=== PATIENT | male | born 1950 | race Caucasian/White ===

== ENCOUNTER → 2018-04-03 | Outpatient (CLI) | payer OTHER ==
[~2018-04-03] MED LIST: ALLOPURINOL300 MG PO; CLONAZEPAM0.5 M1; GABAPENTIN400 MG PO; IOPAMIDOL 370 MG/ML 200 ML INFUS..BTL INJ ONE; SIMVASTATIN20 MG PO; SODIUM CHLORIDE 0.9% 50ML 50 ML ONE; ZOLPIDEM TARTRAT5 MG PO
[2018-04-03 08:03] LABS: BLOOD UREA NITROGEN 14 mg/dL (7-26); BUN/CREATININE RATIO 17 (6-25); CREATININE, SERUM 0.82 mg/dL (0.72-1.25); EST GLOMERULAR FILTRATION RATE > 60 ML/MIN (60-)
--- NOTE | 2018-04-03 09:07 | Diagnostic Imaging Report ---
PROCEDURE: CT scan of the chest WITH intravenous contrast, using standard protocol. TECHNIQUE: The chest was scanned utilizing a multidetector helical scanner from the lung apex through the level of the adrenal glands after the IV administration of 100 cc of Isovue 370. Coronal and sagittal multiplanar reformations were obtained. COMPARISON: Chest radiograph 03/17/18. INDICATIONS: LUNG MASS FINDINGS: Lungs and Airways: There is an azygous lobe. There is a 1.8 x 0.8 x 1 cm (TV x AP x SI) nodular opacity abutting the azygous fissure in the right upper lobe (series 3, image 24). There is a 3 mm right middle lobe nodule on series 3, image 59. The central airways are patent. Pleura: The pleural spaces are clear. Biapical pleural parenchymal scarring. Heart and mediastinum: The thyroid gland is normal. No significant mediastinal, hilar or axillary lymphadenopathy is seen. The heart and pericardium are within normal limits. Soft tissues: Normal. Abdomen: Limited contrast-enhanced views of the upper abdomen show no abnormality within the visualized liver, spleen, pancreas, or kidneys. The adrenal glands are normal. Bones: No acute bony findings. Lower thoracic spinal stimulator is present. IMPRESSION: Indeterminate 1.8 cm nodular opacity in the right upper lobe abutting the azygous fissure. While pleural parenchymal scarring can have a similar appearance, a pulmonary nodule is considered more likely. Per 2017 Fleischner Society recommendations, a PET-CT, follow-up chest CT in 3 months, or biopsy is suggested for further evaluation. Dictated by: PARAMJIT CORDERO M.D. on 04/03/2018 at 9:15 Electronically approved by: PARAMJIT CORDERO M.D. on 04/03/2018 at 9:15
== END ==
LOC: CT 07:05
PROVIDERS: ATTEND Urology
DX: D38.1 Neoplasm of uncertain behavior of trachea, bronchus and lung (principal)
CPT/HCPCS: 36415; 71260; 82565; 84520; Q9967

== ENCOUNTER → 2018-04-04 | Day surgery (SDC) | payer OTHER ==
[~2018-04-04] MED LIST changes: +CLINDAMYCIN 300MG 50 ML IV ONE; +FENTANYL CITRATE/PF 100MCG/2 ML INJ ONE; +GENTAMICIN 120MG/NS 100ML 100 ML ONE; -IOPAMIDOL 370 MG/ML 200 ML INFUS..BTL INJ ONE; +MIDAZOLAM HCL 2 MG/2 ML VIAL ONE; +PROPOFOL IV EMULSION 10 MG/ML 20 ML VIAL ONE; -SODIUM CHLORIDE 0.9% 50ML 50 ML ONE
[2018-04-04 10:20] VITALS: BP 131/91
--- NOTE | 2018-04-07 11:56 | Operative Report ---
DATE OF PROCEDURE: April 04, 2018 PREOPERATIVE DIAGNOSIS: Elevated prostatic specific antigen of 11. POSTOPERATIVE DIAGNOSIS: Elevated prostatic specific antigen of 11. PROCEDURES 1. Prostate ultrasound. 2. Ultrasound-guided needle biopsy. 3. Biopsy of prostate. ANESTHESIA: General. ESTIMATED BLOOD LOSS: Minimal. COMPLICATIONS: None. INDICATIONS: Mr. De La Cruz is a 68-year-old male with an increasing PSA. He and I had a long discussion of the alternatives, risks and benefits, including doing nothing, prostate biopsy. He voiced the options, alternatives, risks, and benefits. He had a urinalysis negative for infection and had prophylactic antibiotics. PROCEDURE IN DETAIL: After informed consent was obtained, the patient was taken to the operative suite and placed supine on the operative table. Underwent anesthesia by the service. He was then placed in the left lateral decubitus position. 1. PROSTATE ULTRASOUND: Utilizing a plethora of lubrication, the transrectal ultrasound probe was inserted anally. A prostate ultrasound was performed. It revealed normal appearing seminal vesicles. The volume of the prostate was calculated at 23.98 mL. No hypoechoic lesions. No calcifications. 2. ULTRASOUND GUIDANCE: meteorological technician utilized the ultrasound machine. Ultrasound guidance was performed. 3. NEEDLE BIOPSY OF PROSTATE: Typical pattern. Prostate biopsies were performed with minimal bleeding. The patient tolerated the procedure well. Was transported to the recovery room in excellent condition. No untoward effects noted. Job#: [id number] SIMON
== END | disposition home or self-care (01) ==
LOC: OR 07:04
PROVIDERS: ATTEND Urology
DX: C61 Malignant neoplasm of prostate (principal); G47.33 Obstructive sleep apnea (adult) (pediatric); Z88.5 Allergy status to narcotic agent; F41.9 Anxiety disorder, unspecified
CPT/HCPCS: 55700; 76872; 76942; 88305; J1580; J2250

== ENCOUNTER → 2019-01-15 | Outpatient (CLI) | payer OTHER ==
[~2019-01-15] MED LIST changes: -CLINDAMYCIN 300MG 50 ML IV ONE; -FENTANYL CITRATE/PF 100MCG/2 ML INJ ONE; -GENTAMICIN 120MG/NS 100ML 100 ML ONE; +IOPAMIDOL 370 MG/ML 200 ML INFUS..BTL INJ ONE; -MIDAZOLAM HCL 2 MG/2 ML VIAL ONE; -PROPOFOL IV EMULSION 10 MG/ML 20 ML VIAL ONE; +SODIUM CHLORIDE 0.9% 50ML 50 ML ONE
[2019-01-15 11:51] LABS: BLOOD UREA NITROGEN 21 mg/dL (7-26); BUN/CREATININE RATIO 21 (6-25); CREATININE, SERUM 1.01 mg/dL (0.72-1.25); EST GLOMERULAR FILTRATION RATE > 60 ML/MIN (60-)
--- NOTE | 2019-01-15 12:53 | Diagnostic Imaging Report ---
PROCEDURE: CT scan of the chest WITH intravenous contrast, using standard protocol. TECHNIQUE: The chest was scanned utilizing a multidetector helical scanner from the lung apex through the level of the adrenal glands after the IV administration of 100 cc of Isovue 370. Coronal and sagittal multiplanar reformations were obtained. COMPARISON: 04/03/2018 INDICATIONS: RUL NODLE FINDINGS: Lines/tubes: None. Lungs and Airways: When accounting for differences in technique, no appreciable interval change in the size or appearance of the previously described nodular opacity along the azygous fissure in the right upper lobe (series 3 image 28). The lesion measures 1.6 cm oblique transverse by 0.8 cm oblique AP by 0.8 cm craniocaudal (previously 1.8 x 0.8 x 1 cm). Similarly, the 3 mm right middle lobe nodule described on the comparison examination is also unchanged. Accessory azygos fissure again noted. Triangular juxtapleural opacity laterally within the right lower lobe is unchanged as well. No new or additional suspicious pulmonary nodules. No consolidation, bronchiectasis, or gross fibrotic change Pleura: The pleural spaces are clear. Heart and mediastinum: Visualized portions of the thyroid gland appear normal. No axillary, hilar, or mediastinal lymphadenopathy. Normal heart size without pericardial effusion. Tortuous thoracic aorta without ectasia or aneurysmal dilatation. Great vessel origins are normal in caliber and configuration. Soft tissues: No focal soft tissue abnormalities. Spinal stimulator device terminates in the dorsal aspect of the spinal canal at T9-T10, unchanged. Abdomen: Visualized portions of the liver, gallbladder, spleen, pancreas, and adrenal glands are unremarkable. 1.4 cm exophytic lesion projecting anteriorly from the partially visualized left kidney has average internal attenuation less than 10 Hounsfield units, compatible with a simple cyst. Bones: No acute osseous abnormality. Multilevel degenerative disc changes. IMPRESSION: When accounting for differences in technique, no significant interval change in the appearance of the irregularly marginated nodular opacity in the right lung apex, likely post infectious or inflammatory scar given stability to March 2018. An additional one year followup chest CT may be obtained to document 2 years of stability. Dictated by: Yousuf Carranza M.D. on 01/15/2019 at 12:58 Electronically approved by: Yousuf Carranza M.D. on 01/15/2019 at 12:58
== END ==
LOC: CT 10:54
PROVIDERS: ATTEND Internal Medicine Critical Care Medicine
DX: R91.8 Other nonspecific abnormal finding of lung field (principal)
CPT/HCPCS: 36415; 71260; 82565; 84520; Q9967

== ENCOUNTER → 2020-05-05 | Outpatient (CLI) | payer MEDICARE ==
[~2020-05-05] MED LIST changes: -IOPAMIDOL 370 MG/ML 200 ML INFUS..BTL INJ ONE; -SODIUM CHLORIDE 0.9% 50ML 50 ML ONE
--- NOTE | 2020-05-05 13:01 | Diagnostic Imaging Report ---
CT of the chest, without contrast, 05/05/2020. History: Pulmonary nodule. Comparison: 01/15/2019, 04/03/2018. Technique: Multidetector CT scanning of the chest was performed from the level of the apices to the upper abdomen without contrast. Coronal and sagittal multiplanar reformations were obtained. RADIATION DOSE: Total DLP: 250 mGy*cm Dose modulation, iterative reconstruction, and/or weight based adjustment of the mA/kV was utilized to reduce the radiation dose to as low as reasonably achievable. Discussion: Evaluation is limited without IV contrast. Chest: The heart, aorta, and pulmonary vessels are normal in size. The thyroid is unremarkable. There is no gross evidence of adenopathy. Azygos fissure and lobe are present. Right apical nodular scarring with adjacent pleural thickening is present, measuring 1.6 x 0.8 cm, unchanged in appearance. 3 mm right middle lobe nodule is also unchanged. Minimal scarring is also noted along the superior medial aspect of the right lower lobe. Remaining lungs are clear. There is no evidence of pleural effusion. Limited evaluation of the upper abdomen shows normal adrenal glands. Bones and soft tissues: No acute abnormality. Degenerative changes are present throughout the thoracic spine. Spinal stimulator device is again noted. IMPRESSION: No acute or suspicious pulmonary abnormality. Right apical nodular scarring has been stable for over 2 years and is therefore considered benign. Signed by: Ignacio Craig on 05/05/2020 12:57 PM
== END ==
LOC: CT 11:26
PROVIDERS: ATTEND Internal Medicine Critical Care Medicine
DX: R91.8 Other nonspecific abnormal finding of lung field (principal)
CPT/HCPCS: 71250

== ENCOUNTER → 2021-10-10 | Outpatient (CLI) | payer MEDICARE | LOC: RAD 10:33 | PROVIDERS: ATTEND Internal Medicine Critical Care Medicine | DX: R91.8 Other nonspecific abnormal finding of lung field (principal) | CPT/HCPCS: 71046 ==